=== PATIENT | female | born 1980 | race Caucasian/White ===

== ENCOUNTER 2019-11-08 17:39 | Emergency (ER) | payer MEDICAID ==
[~2019-11-08] VITALS: Ht 165.1 cm; Wt 75.7 kg
[2019-11-08 17:41] VITALS: BP 124/76
--- NOTE | 2019-11-08 17:46 | NUR ---
pt ambulated to bed 11, steady gait.
--- NOTE | 2019-11-08 17:50 | NUR ---
OD-20 OS-20 OB-20 WITHOUT CORRECTION
--- NOTE | 2019-11-08 17:55 | NUR ---
Pt c/o right eye erythema since yesterday s/p gardening, possible foreign body. Pt also c/o right jaw pain x 2 day. PATIENT STATES PAIN OF 9/10 AT THIS TIME; VSS; PATIENT POSITIONED FOR COMFORT; HOB ELEVATED; BEDRAILS UP X1; BED DOWN. ER MD MADE AWARE OF PT STATUS.
--- NOTE | 2019-11-08 18:00 | NUR ---
FAY KINNEY IS EVALUATING PT AT BEDSIDE.
[2019-11-08] MEDS ORDERED: FLUORESCEIN OPTH STRIP 1 MG OP ONE (18:05)
--- NOTE | 2019-11-08 18:50 | NUR ---
FAY KINNEY IS EVALUATING PT AT BEDSIDE.
[2019-11-08 19:11] VITALS: BP 121/67
--- NOTE | 2019-11-08 19:11 | NUR ---
Patient discharged with v/s stable. Written and verbal after care instructions given and explained. Patient alert, oriented and verbalized understanding of instructions. Ambulatory with steady gait. All questions addressed prior to discharge. ID band removed. Patient advised to follow up with PMD. Rx of Gentak and Ibuprofen given. Patient educated on indication of medication including possible reaction and side effects. Opportunity to ask questions provided and answered.
== END 2019-11-08 19:11 | disposition home or self-care (01) ==
LOC: MED 17:39
DX: S05.02XA Injury of conjunctiva and corneal abrasion without foreign body, left eye, initial encounter (principal); X58.XXXA Exposure to other specified factors, initial encounter; Y93.89 Activity, other specified; Y92.89 Other specified places as the place of occurrence of the external cause; Y99.8 Other external cause status
CPT/HCPCS: 99283

== ENCOUNTER 2022-04-22 15:37 | Emergency (ER) | payer MEDICAID ==
--- NOTE | 2022-04-22 15:40 | NUR ---
pt called, no answer at this time
--- NOTE | 2022-04-22 16:09 | NUR ---
pt called, no answer at this time
--- NOTE | 2022-04-22 16:21 | NUR ---
left before triage
[2022-04-22] MEDS ORDERED: BENZ-300 PO (19:41)
== END 2022-04-22 16:21 | disposition left against medical advice (07) ==
LOC: MED 15:37
DX: J02.9 Acute pharyngitis, unspecified (principal); Z53.21 Procedure and treatment not carried out due to patient leaving prior to being seen by health care provider

== ENCOUNTER 2022-04-22 17:52 | Emergency (ER) | payer MEDICAID ==
[~2022-04-22] VITALS: Ht 170.2 cm; Wt 79.8 kg
[2022-04-22 17:57] VITALS: BP 127/79
--- NOTE | 2022-04-22 18:09 | NUR ---
42/F PRESENTS TO ED WITH C/O COUGH, RUNNY NOSE AND SUBJECTIVE FEVERS X3 DAYS, REPORTS TAKING OTC COLD MEDS WITH NO RELIEF. FAMILY SICK WITH SAME SYMPTOMS. DENIES SOB, CP, N/V/D.
--- NOTE | 2022-04-22 18:14 | NUR ---
FLU AND HAMMAD SWABS COLLECTED AND WALKED TO LAB
--- NOTE | 2022-04-22 18:45 | NUR ---
STREP SWAB COLLECTED AND WALKED TO LAB
[2022-04-22] MEDS ORDERED: BENZ-300 PO (19:41)
[2022-04-22 19:54] VITALS: BP 122/74
== END 2022-04-22 19:54 | disposition home or self-care (01) ==
LOC: MED 17:52
DX: J10.1 Influenza due to other identified influenza virus with other respiratory manifestations (principal); Z20.822 Contact with and (suspected) exposure to COVID-19; J02.9 Acute pharyngitis, unspecified; Z79.899 Other long term (current) drug therapy
CPT/HCPCS: 87081; 99283